=== PATIENT | female | born 1990 | race Caucasian/White ===

== ENCOUNTER 2018-04-23 00:30 | Emergency (ER) | payer OTHER ==
[~2018-04-23] VITALS: Ht 152.4 cm; Wt 59.9 kg
[2018-04-23] MEDS ORDERED: FOLIC ACID1 MG (00:38)
[2018-04-23] MEDS ORDERED: ZOFRAN4 MG PO (06:39)
[2018-04-23] MEDS ORDERED: PEPCID40 MG PO (06:39)
== END 2018-04-23 07:05 | disposition home or self-care (01) ==
LOC: EMR PED 00:30 → ER 00:30
DX: K52.89 Other specified noninfective gastroenteritis and colitis (principal)

== ENCOUNTER 2018-05-08 20:34 | Emergency (ER) | payer OTHER ==
[~2018-05-08] VITALS: Ht 162.6 cm; Wt 58.1 kg
[~2018-05-08 20:34] MED LIST: FOLIC ACID1 MG; PEPCID40 MG PO; ZOFRAN4 MG PO
[2018-05-08] MEDS ORDERED: PRENATAL + DHA1 EAC1 (20:47)
[2018-05-09] MEDS ORDERED: DICYCLOMIN10 MG/5 ML PO (04:47)
== END 2018-05-09 05:20 | disposition home or self-care (01) ==
LOC: ER 20:34
DX: K82.8 Other specified diseases of gallbladder (principal); R10.11 Right upper quadrant pain

== ENCOUNTER 2018-10-20 10:39 | Outpatient (CLI) | payer OTHER ==
[~2018-10-20 10:39] MED LIST changes: +DICYCLOMIN10 MG/5 ML PO; +PRENATAL + DHA1 EAC1
== END 2018-10-20 11:32 | disposition home or self-care (01) ==
LOC: NST 10:39
DX: Z34.83 Encounter for supervision of other normal pregnancy, third trimester (principal)

== ENCOUNTER 2018-10-23 20:20 | Inpatient (IN) | payer OTHER ==
[~2018-10-23] VITALS: Ht 162.6 cm; Wt 3.2 kg
[2018-10-23] MEDS ORDERED: NIFE60TA3 PO (21:23)
[2018-10-23] MEDS ORDERED: TERBUTALINE SULF5 MG PO (21:26)
[2018-10-23] MEDS ORDERED: INTEGRA PLUS C1 EACH PO (21:28)
== END 2018-10-27 12:36 | disposition home or self-care (01) | DRG 788 ==
LOC: LDR 20:20 → OB/GYN 20:20 → LDR 21:46 → OB/GYN 10-24 12:41
PROVIDERS: ADMIT Specialist
PROC: 10D00Z1 Extraction of Products of Conception, Low, Open Approach (ICD-10-PCS; principal; 2018-10-23)
PROC: 4A1HXCZ Monitoring of Products of Conception, Cardiac Rate, External Approach (ICD-10-PCS; 2018-10-23)
DX: O64.0XX0 Obstructed labor due to incomplete rotation of fetal head, not applicable or unspecified (principal); Z3A.37 37 weeks gestation of pregnancy; Z37.0 Single live birth

== ENCOUNTER 2020-11-09 09:20 | Day surgery (SDC) | payer OTHER ==
[~2020-11-09 09:20] MED LIST changes: +INTEGRA PLUS C1 EACH PO; +KETO10TA2 PO; +NIFE60TA3 PO; +TERBUTALINE SULF5 MG PO
== END 2020-11-09 20:25 | disposition home or self-care (01) ==
LOC: CIR.AMB 09:20
PROVIDERS: ATTEND Student in an Organized Health Care Education/Training Program
DX: Z30.2 Encounter for sterilization (principal); Z20.822 Contact with and (suspected) exposure to COVID-19